=== PATIENT | male | born 1975 | race Caucasian/White ===

== ENCOUNTER 2021-09-27 10:06 | Inpatient (IN) ==
[2021-09-27] MEDS ORDERED: cefOXitin 2,000 MG in 0.9 % Sodium Chloride 20 ML IVP ONE (10:19)
[2021-09-27] MEDS ORDERED: Ondansetron 4 MG/2 ML VIAL IVP PRN ×2 (10:29→20:54)
[2021-09-27] MEDS ORDERED: Promethazine 6.25 MG in Water for inj. (sterile) 20 ML IVPB PRN (10:29)
[2021-09-27] MEDS ORDERED: *HR* OxyCODONE Immed Rel 5 MG TABLET PO PRN (10:29)
[2021-09-27] MEDS ORDERED: Ringers Solution, Lactated 1,000 ML IVC SCH (10:30)
[2021-09-27] MEDS ORDERED: Ondansetron 4 MG/2 ML VIAL ONE (13:31)
[2021-09-27] MEDS ORDERED: Lidocaine -MPF 2% 5 ML VIAL ONE (13:31)
[2021-09-27] MEDS ORDERED: *HR* FentaNYL (PF) 100 MCG/2 ML VIAL ONE (13:31)
[2021-09-27] MEDS ORDERED: *HR* Propofol 200 MG/20 ML VIAL IVP ONE (13:31)
[2021-09-27] MEDS ORDERED: *HR* Succinylcholine 200 MG/10 ML VIAL IVP ONE (13:31)
[2021-09-27] MEDS ORDERED: *HR* Midazolam HCl 2 MG/2 ML VIAL ONE (13:31)
[2021-09-27] MEDS ORDERED: Lidocaine HCL 4 ML Topical Solution (Laryng-O-Jet Kit Sterile Pak) TP ONE (13:31)
[2021-09-27] MEDS ORDERED: *HR* Rocuronium Bromide 50 MG/5 ML VIAL ONE ×3 (13:31→17:28)
[2021-09-27] MEDS ORDERED: CefOXitin 1,000 MG VIAL ONE (13:57)
[2021-09-27] MEDS ORDERED: Albumin Human 5% 12.5 GM/250 ML IV.SOLN ONE (15:09)
[2021-09-27] MEDS ORDERED: *HR* HYDROMORPHONE 2 MG/ML VIAL ONE (15:25)
[2021-09-27] MEDS ORDERED: Sugammadex Sodium 200 MG/2 ML VIAL IV ONE (17:38)
[2021-09-27] MEDS: *HR* HYDROmorphone PF 0.5 MG/0.5 ML SYRINGE IVP PRN ×4 (18:26→18:59)
[2021-09-27] MEDS: *HR* HYDROmorphone (PF) 1 MG/ML SYRINGE IVP PRN ×3 (19:13→19:30)
[2021-09-27] MEDS ORDERED: Naloxone 0.4 MG/ML INJ IVP PRN (20:46)
[2021-09-27] MEDS: 0.9 % Sodium Chloride 1,000 ML IVC SCH (21:09)
[2021-09-27] MEDS: Metoclopramide 10 MG/2 ML VIAL IVP PRN (23:49)
[2021-09-27] MEDS: cefOXitin 2,000 MG in 0.9 % Sodium Chloride 20 ML IVP SCH (23:52)
[2021-09-28] MEDS ORDERED: Acetaminophen 325 MG TABLET PO PRN (00:50)
[2021-09-28] MEDS: Morphine Sulfate Oral CONC 10 MG/0.5 ML ORAL.SYG SL PRN ×2 (01:20→16:50)
[2021-09-28] MEDS: Ketorolac 30 MG/ML VIAL IVP SCH ×5 (01:22→22:38)
[2021-09-28 02:10] LABS: Basophils % 0.1 %; Hematocrit 40.8 % (37.5-50.1); Immature Granulocytes % 0.4 % (0-4); Lymphocytes # 0.3 K/mcL (0.6-4.6); Lymphocytes % 1.6 %; Mean Corpuscular HGB Conc 32.8 g/dL (31.6-35.5); Mean Corpuscular Hemoglobin 30.7 pg (28.0-33.3); Mean Corpuscular Volume 93.4 fL (83.0-100.0); Mean Platelet Volume 9.6 fL (9.4-12.4); Monocytes # 1.1 K/mcL (0.0-1.3); Monocytes % 5.9 %; Neutrophils # 17.7 K/mcL (1.6-8.9); Platelet Count 243 K/mcL (140-400); Red Blood Count 4.37 M/mcL (4.19-5.50); Red Cell Distribution Width 13.5 % (11.5-14.5)
[2021-09-28 02:31] LABS: Hemoglobin 13.4 g/dL (12.9-16.9); White Blood Count 19.2 K/mcL (4.3-11.1)
[2021-09-28 02:32] LABS: BUN/Creatinine Ratio 8 (6-26); Blood Urea Nitrogen 8 mg/dL (6-20); Carbon Dioxide 23 mEq/L (23-29); Chloride 106 mEq/L (98-107); Glucose 167 mg/dL (70-105); Osmolality,Calculated 286 (280-300); Potassium 3.9 mEq/L (3.5-5.1); Sodium 137 mEq/L (136-145); eGFR For African Americans > 60 (> 60); eGFR For Non-African Americans > 60 (> 60)
[2021-09-28] MEDS: 0.9 % Sodium Chloride 1,000 ML IVC SCH ×2 (07:34→18:05)
[2021-09-28] MEDS: cefOXitin 2,000 MG in 0.9 % Sodium Chloride 20 ML IVP SCH ×3 (07:34→22:38)
[2021-09-28] MEDS ORDERED: Scopolamine Patch 1.5 MG PATCH.TD72 TD ONE (08:47)
[2021-09-28] MEDS ORDERED: BuPROPion SR (12 HR) 100 MG TABLET PO SCH (12:30)
[2021-09-28] MEDS: *HR* OxyCODONE Immed Rel 5 MG TABLET PO PRN (18:12)
[2021-09-28] MEDS: *HR* Heparin 5,000 UNIT/ML VIAL SQ SCH (18:58)
[2021-09-29] MEDS ORDERED: MOM Conc 10 ML UD.LIQ PO PRN (01:34)
[2021-09-29] MEDS: *HR* OxyCODONE Immed Rel 5 MG TABLET PO PRN ×3 (01:38→19:40)
[2021-09-29] MEDS: Metoclopramide 10 MG/2 ML VIAL IVP PRN ×2 (01:46→10:07)
[2021-09-29] MEDS: 0.9 % Sodium Chloride 1,000 ML IVC SCH (02:29)
[2021-09-29 03:51] LABS: Basophils % 0.2 %; Eosinophils % 0.3 %; Hematocrit 39.8 % (37.5-50.1); Hemoglobin 12.8 g/dL (12.9-16.9); Immature Granulocytes % 0.6 % (0-4); Lymphocytes # 1.3 K/mcL (0.6-4.6); Lymphocytes % 10.1 %; Mean Corpuscular HGB Conc 32.2 g/dL (31.6-35.5); Mean Corpuscular Hemoglobin 30.5 pg (28.0-33.3); Mean Platelet Volume 10.4 fL (9.4-12.4); Monocytes # 1.2 K/mcL (0.0-1.3); Monocytes % 9.2 %; Platelet Count 229 K/mcL (140-400); Red Blood Count 4.19 M/mcL (4.19-5.50); Red Cell Distribution Width 13.5 % (11.5-14.5); Segmented Neutrophils % 79.6 %; White Blood Count 12.5 K/mcL (4.3-11.1)
[2021-09-29] MEDS ORDERED: Ketorolac 30 MG/ML VIAL IVP SCH (04:00)
[2021-09-29 04:12] LABS: BUN/Creatinine Ratio 6 (6-26); Blood Urea Nitrogen 6 mg/dL (6-20); Calcium 8.7 mg/dL (8.6-10.3); Carbon Dioxide 28 mEq/L (23-29); Chloride 104 mEq/L (98-107); Glucose 117 mg/dL (70-105); Magnesium 1.7 mg/dL (1.6-2.6); Osmolality,Calculated 287 (280-300); Phosphorous 1.5 mg/dL (2.7-4.5); Potassium 3.4 mEq/L (3.5-5.1); Sodium 139 mEq/L (136-145)
[2021-09-29] MEDS: *HR* Heparin 5,000 UNIT/ML VIAL SQ SCH ×3 (04:29→21:35)
[2021-09-29] MEDS: Morphine Sulfate Oral CONC 10 MG/0.5 ML ORAL.SYG SL PRN (04:30)
[2021-09-29] MEDS ORDERED: *HR* HYDROmorphone (PF) 1 MG/ML SYRINGE IVP ONE ×2 (05:08→10:58)
[2021-09-29] MEDS ORDERED: Potassium Phosphate 44 MEQ in 0.9 % Sodium Chloride 250 ML IVPB ONE (06:48)
[2021-09-29] MEDS ORDERED: Ibuprofen 800 MG TABLET PO ONE (09:05)
[2021-09-29] MEDS ORDERED: polyethylene glycoL 3350 17 GM POWD.PACK PO SCH (09:15)
[2021-09-29] MEDS: Thiamine (B-1) 100 MG TABLET PO SCH (09:56)
[2021-09-29] MEDS: BuPROPion XL (24 HR) 150 MG TABLET PO SCH (09:57)
[2021-09-29] MEDS: Folic Acid 1 MG TABLET PO SCH (09:57)
[2021-09-29] MEDS: Loratadine 10 MG TABLET PO SCH (09:58)
[2021-09-29] MEDS: cefOXitin 2,000 MG in 0.9 % Sodium Chloride 20 ML IVP SCH ×2 (09:58→16:47)
[2021-09-29] MEDS: Gabapentin 300 MG CAPSULE PO SCH ×3 (09:58→19:40)
[2021-09-29] MEDS: Acetaminophen 325 MG TABLET PO SCH ×2 (11:41→19:40)
[2021-09-29] MEDS: Ibuprofen 800 MG TABLET PO SCH (16:48)
[2021-09-29] MEDS: *HR* HYDROmorphone (PF) 1 MG/ML SYRINGE IVP PRN ×2 (16:55→21:35)
[2021-09-30] MEDS: *HR* OxyCODONE Immed Rel 5 MG TABLET PO PRN (00:23)
[2021-09-30] MEDS: Ibuprofen 800 MG TABLET PO SCH ×3 (00:24→16:14)
[2021-09-30] MEDS: Acetaminophen 325 MG TABLET PO SCH ×4 (00:25→17:40)
[2021-09-30 02:42] LABS: Basophils % 0.2 %; Eosinophils # 0.1 K/mcL (0.0-0.6); Eosinophils % 0.5 %; Hematocrit 33.1 % (37.5-50.1); Immature Granulocytes % 0.5 % (0-4); Lymphocytes # 0.8 K/mcL (0.6-4.6); Lymphocytes % 8.3 %; Mean Corpuscular HGB Conc 31.7 g/dL (31.6-35.5); Mean Corpuscular Hemoglobin 30.4 pg (28.0-33.3); Mean Corpuscular Volume 95.9 fL (83.0-100.0); Monocytes # 0.9 K/mcL (0.0-1.3); Monocytes % 8.9 %; Neutrophils # 8.1 K/mcL (1.6-8.9); Platelet Count 172 K/mcL (140-400); Red Blood Count 3.45 M/mcL (4.19-5.50); Red Cell Distribution Width 13.6 % (11.5-14.5); Segmented Neutrophils % 81.6 %
[2021-09-30 02:48] LABS: Hemoglobin 10.5 g/dL (12.9-16.9)
[2021-09-30 03:05] LABS: BUN/Creatinine Ratio 9 (6-26); Blood Urea Nitrogen 9 mg/dL (6-20); C-Reactive Protein 243 mg/L (Less than 10); Calcium 8.3 mg/dL (8.6-10.3); Carbon Dioxide 27 mEq/L (23-29); Chloride 104 mEq/L (98-107); Glucose 69 mg/dL (70-105); Magnesium 1.7 mg/dL (1.6-2.6); Osmolality,Calculated 281 (280-300); Phosphorous 3.8 mg/dL (2.7-4.5); Potassium 3.9 mEq/L (3.5-5.1); Sodium 137 mEq/L (136-145)
[2021-09-30] MEDS: cefOXitin 2,000 MG in 0.9 % Sodium Chloride 20 ML IVP SCH ×3 (04:48→16:13)
[2021-09-30] MEDS: *HR* Heparin 5,000 UNIT/ML VIAL SQ SCH ×3 (05:23→22:15)
[2021-09-30] MEDS: Gabapentin 300 MG CAPSULE PO SCH ×3 (09:18→22:15)
[2021-09-30] MEDS: Loratadine 10 MG TABLET PO SCH (09:18)
[2021-09-30] MEDS: Folic Acid 1 MG TABLET PO SCH (09:18)
[2021-09-30] MEDS: Thiamine (B-1) 100 MG TABLET PO SCH (09:18)
[2021-09-30] MEDS: BuPROPion XL (24 HR) 150 MG TABLET PO SCH (09:18)
[2021-09-30] MEDS: 0.9 % Sodium Chloride 1,000 ML IVC SCH ×2 (13:02→22:22)
[2021-10-01] MEDS: cefOXitin 2,000 MG in 0.9 % Sodium Chloride 20 ML IVP SCH ×2 (00:01→08:45)
[2021-10-01 01:43] LABS: Basophils % 0.2 %; Eosinophils # 0.1 K/mcL (0.0-0.6); Eosinophils % 0.6 %; Hematocrit 32.3 % (37.5-50.1); Hemoglobin 10.7 g/dL (12.9-16.9); Immature Granulocytes % 0.5 % (0-4); Lymphocytes % 10.4 %; Mean Corpuscular HGB Conc 33.1 g/dL (31.6-35.5); Mean Corpuscular Volume 93.6 fL (83.0-100.0); Mean Platelet Volume 9.6 fL (9.4-12.4); Monocytes # 0.9 K/mcL (0.0-1.3); Monocytes % 9.1 %; Neutrophils # 7.5 K/mcL (1.6-8.9); Platelet Count 195 K/mcL (140-400); Red Blood Count 3.45 M/mcL (4.19-5.50); Red Cell Distribution Width 12.9 % (11.5-14.5); Segmented Neutrophils % 79.2 %; White Blood Count 9.4 K/mcL (4.3-11.1)
[2021-10-01] MEDS: 0.9 % Sodium Chloride 1,000 ML IVC SCH (06:15)
[2021-10-01] MEDS: *HR* Heparin 5,000 UNIT/ML VIAL SQ SCH (06:16)
[2021-10-01] MEDS: Acetaminophen 325 MG TABLET PO SCH ×2 (06:18)
[2021-10-01 06:25] LABS: BUN/Creatinine Ratio 6 (6-26); Blood Urea Nitrogen 5 mg/dL (6-20); Calcium 8.2 mg/dL (8.6-10.3); Carbon Dioxide 27 mEq/L (23-29); Chloride 104 mEq/L (98-107); Glucose 74 mg/dL (70-105); Magnesium 1.7 mg/dL (1.6-2.6); Osmolality,Calculated 278 (280-300); Potassium 3.3 mEq/L (3.5-5.1); Sodium 136 mEq/L (136-145)
[2021-10-01] MEDS ORDERED: Potassium Phosphate 44 MEQ in 0.9 % Sodium Chloride 250 ML IVPB ONE (07:51)
[2021-10-01] MEDS: Thiamine (B-1) 100 MG TABLET PO SCH (08:44)
[2021-10-01] MEDS: Gabapentin 300 MG CAPSULE PO SCH (08:45)
[2021-10-01] MEDS: Folic Acid 1 MG TABLET PO SCH (08:45)
[2021-10-01] MEDS: BuPROPion XL (24 HR) 150 MG TABLET PO SCH (08:45)
[2021-10-01] MEDS: Ibuprofen 800 MG TABLET PO SCH ×2 (08:45)
[2021-10-01] MEDS: Loratadine 10 MG TABLET PO SCH (08:45)
[2021-10-01 11:53] VITALS: BP 124/76; PULSE 97; TEMP 98.1; O2SAT 96
== END 2021-10-01 12:24 | disposition home or self-care (01) | DRG 330 ==
LOC: SAMDAY 10:06 → 3ANU 20:14
PROVIDERS: ADMIT Surgery; ATTEND Surgery